=== PATIENT | male | born 1955 | race Caucasian/White ===

== ENCOUNTER 2016-10-16 13:25 | Emergency (ER) | payer MEDICARE, OTHER ==
[~2016-10-16] VITALS: Ht 182.9 cm; Wt 90.7 kg
[2016-10-16 13:33] VITALS: BP 115/72
== END 2016-10-16 14:18 | disposition home or self-care (01) ==
LOC: ER 13:31
DX: Z89.512 Acquired absence of left leg below knee (principal); I12.0 Hypertensive chronic kidney disease with stage 5 chronic kidney disease or end stage renal disease; N18.6 End stage renal disease; E11.22 Type 2 diabetes mellitus with diabetic chronic kidney disease; I25.10 Atherosclerotic heart disease of native coronary artery without angina pectoris
CPT/HCPCS: 99281; A4606; Z7502; Z7610

== ENCOUNTER 2017-02-02 13:31 | Inpatient (IN) | payer MEDICARE, OTHER ==
[~2017-02-02] VITALS: Ht 182.9 cm; Wt 103.6 kg
--- NOTE | 2017-02-02 14:15 | NUR ---
[facility] FROM [facility]. AAO4. STATES HE WAS SENT HERE BC "THERE'S A PROBLEM WITH MY FISTULA".
[2017-02-02 15:13] LABS: BASOPHILS # (AUTO) 0.1 /CMM (0.0-0.2); BASOPHILS % (AUTO) 1.2 % (0.0-2.0); EOSINOPHILS # (AUTO) 0.3 /CMM (0.0-0.7); EOSINOPHILS % (AUTO) 7.8 % (0.0-6.0); HEMATOCRIT 37 % (39-51); HEMOGLOBIN 12.4 g/dL (13.5-17.5); LYMPHOCYTES # (AUTO) 1.2 /CMM (0.8-4.8); LYMPHOCYTES % (AUTO) 27.4 % (20.0-44.0); MEAN CORPUSCULAR HEMOGLOBIN 31 PG (26.0-33.0); MEAN CORPUSCULAR HGB CONC 34 g/dl (31.0-36.0); MEAN CORPUSCULAR VOLUME 92 fL (80-96); MONOCYTES # (AUTO) 0.4 /CMM (0.1-1.30); MONOCYTES % (AUTO) 9.1 % (2.0-12.0); NEUTROPHILS # (AUTO) 2.4 /CMM (1.8-8.9); NEUTROPHILS % (AUTO) 54.5 % (43.0-81.0); PLATELET COUNT (AUTO) 234 /CMM (150-450); RDW COEFFICIENT OF VARIATION 13.2 (11.5-15.0); RED BLOOD CELL COUNT(AUTO) 4.05 MIL/uL (4.5-6.0); WHITE BLOOD COUNT (AUTO) 4.4 K/uL (4.3-11.0)
[2017-02-02 15:26] LABS: CALCIUM, SERUM 8.1 mg/dL (8.5-10.1)
[2017-02-02 15:27] LABS: INR 0.92 (0.87-1.13); PROTHROMBIN TIME 9.6 SECS (9.5-12.7)
[2017-02-02] MEDS ORDERED: ACETAMINOPHEN ES 500 MG TABLET PO ONE (15:30)
[2017-02-02 15:31] LABS: CREATININE 7.8 mg/dL (0.6-1.3)
--- NOTE | 2017-02-02 19:43 | NUR ---
PT A/OX4 BREATHING EFFORTLESSLY ON ROOM AIR, PT STATES HE IS IN NO PAIN AT THIS TIME, PT ON MONITOR, MD SHON MADE AWARE WILL CONTINUE TO MONITOR.
[2017-02-02] MEDS ORDERED: IOHEXOL-350 100 ML VIAL IV ONE (20:10)
[2017-02-02] MEDS ORDERED: IV NS 0.9% 250 ML IV ONE (20:11)
[2017-02-02 21:45] VITALS: BP 159/71
[2017-02-02 22:00] VITALS: BP 159/71
--- NOTE | 2017-02-02 22:30 | NUR ---
MS [place] INITIAL NOTES ADMIT A PT FROM ER VIA [facility] ACCOMPANIED BY DELIVERY PROFESSIONAL. DX OF AV FISTULA MALFUNCTION. PT IS A/O X4, ABLE TO AMBULATE EVEN WITH PROSTHESIS ON HIS LEFT LOWER LEG. SKIN WARM AND DRY TO TOUCH. DENIES ANY PAIN OR ANY DISCOMFORT. ORIENTED HOW TO USED THE CALL LIGHT SYSTEM AND ENCOURAGE HIM TO USED IF HE NEEDS NURSE OR NEEDS SOME HELPED. PT STATED HE JUST WANTS SOMETHING TO EAT. SPOKE TO HIM THAT I WILL CHECKED THE ORDERS AND I WILL BRING SOMETHING. KEPT HIM WARM AND COMFORTABLE AT ALL TIMES. WILL CONTINUE TO MONITOR. HEPLOCK AT THIS TIME.
--- NOTE | 2017-02-02 23:00 | NUR ---
MEDICAL RECRUITER/NOTES AFTER I GOT ORDERED FROM DR HYDE, LIGHT DINNER SERVED AND PT STATED "THANK YOU " WILL CONTINUE MONITORING.
[2017-02-02] MEDS ORDERED: CHOL200026 PO (23:28)
[2017-02-02] MEDS ORDERED: ATOR20TA PO (23:28)
[2017-02-02] MEDS ORDERED: FOLI1TAB16 PO (23:28)
[2017-02-02] MEDS ORDERED: AMLO10TA2 PO (23:28)
[2017-02-02] MEDS ORDERED: ASPI-991 PO (23:28)
[2017-02-02] MEDS ORDERED: SEVE800T8 PO (23:28)
[2017-02-02] MEDS ORDERED: SERT25TA5 PO (23:28)
--- NOTE | 2017-02-03 01:58 | NUR ---
BELL SPINNER/NOTES PT SLEEPING COMFORTABLY AT THIS TIME WITHOUT ANY ACUTE DISTRESS NOTED. KEPT HIM WARM AND COMFORTABLE AT ALL TIMES. WILL CONTINUE TO MONITOR.PLACE CALL LIGHT AT REACH.
[2017-02-03 06:28] LABS: BASOPHILS % (AUTO) 0.7 % (0.0-2.0); EOSINOPHILS # (AUTO) 0.3 /CMM (0.0-0.7); EOSINOPHILS % (AUTO) 5.8 % (0.0-6.0); HEMATOCRIT 37 % (39-51); HEMOGLOBIN 12.6 g/dL (13.5-17.5); LYMPHOCYTES # (AUTO) 1.2 /CMM (0.8-4.8); LYMPHOCYTES % (AUTO) 21.9 % (20.0-44.0); MEAN CORPUSCULAR HEMOGLOBIN 31 PG (26.0-33.0); MEAN CORPUSCULAR HGB CONC 34 g/dl (31.0-36.0); MEAN CORPUSCULAR VOLUME 92 fL (80-96); MONOCYTES # (AUTO) 0.3 /CMM (0.1-1.30); MONOCYTES % (AUTO) 5.8 % (2.0-12.0); NEUTROPHILS # (AUTO) 3.5 /CMM (1.8-8.9); NEUTROPHILS % (AUTO) 65.8 % (43.0-81.0); PLATELET COUNT (AUTO) 217 /CMM (150-450); RDW COEFFICIENT OF VARIATION 14.1 (11.5-15.0); RED BLOOD CELL COUNT(AUTO) 4.03 MIL/uL (4.5-6.0); WHITE BLOOD COUNT (AUTO) 5.4 K/uL (4.3-11.0)
[2017-02-03 06:45] LABS: POTASSIUM 4.4 mmol/L (3.5-5.1)
[2017-02-03 06:49] LABS: CREATININE 8.2 mg/dL (0.6-1.3)
--- NOTE | 2017-02-03 06:59 | NUR ---
MS LICENSED SOCIAL WORKER CLOSING NOTES PT BACK TO REST AFTER WOKE EARLIER. DENIES ANY PAIN OR ANY DISCOMFORT. STABLE FARTUN THE NIGHT AND SLEPT WELL. ALL NEEDS MET . KEPT HIM WARM AND COMFORTABLE AT ALL TIMES. PLACE CALL AT REACH.
--- NOTE | 2017-02-03 07:30 | NUR ---
RN INITIAL NOTES PATIENT UP IN BED, AWAKE, ALERT AND ORIENTED X 4, ABLE TO VERBALIZE NEEDS, NOTED WITH NO SOB, BREATHING EVEN AND UNLABORED. NO C/O PAIN AT THIS TIME, COMFORTABLE, NO SIGNS AND SYMPTOMS OF ACUTE DISTRESS. CALL LIGHT PLACED WITHIN EASY REACH. WILL CONTINUE TO MONITOR.
[2017-02-03 08:00] VITALS: BP 134/79
[2017-02-03] MEDS ORDERED: ACETAMINOPHEN ES 500 MG TABLET PO PRN (08:30)
[2017-02-03] MEDS ORDERED: CHOLECALCIFEROL 1,000 UNIT TABLET (VIT D3) PO SCH (10:53)
[2017-02-03] MEDS ORDERED: ERGOCALCIFEROL (VITAMIN D 2) 50,000 UNIT CAPSULE PO SCH (11:30)
--- NOTE | 2017-02-03 13:30 | NUR ---
SEEN AND EXAMINED BY DR. HYDE WITH NEW ORDER FOR VASCULAR SURGEON CONSULT BY DR. LEMA. ALL ORDERS NOTED AND CARRIED OUT. PATIENT INFORMED AND AGREES.
[2017-02-03 16:00] VITALS: BP 128/75
[2017-02-03] MEDS: SEVELAMER CARBONATE 800 MG TABLET PO SCH ×2 (16:15→18:50)
--- NOTE | 2017-02-03 18:43 | NUR ---
RN CLOSING NOTES PATIENT UP IN BED, AWAKE, ALERT AND ORIENTED X 4 WITH NO C/O PAIN AT THIS TIME, NO S/S OF ACUTE DISTRESS. ALL PATIENT'S NEEDS ATTENDED TO. KEPT PT SAFE AND DRY, CLEAN AND COMFORTABLE. PLACED CALL LIGHT WITHIN EASY REACH.
--- NOTE | 2017-02-03 19:30 | NUR ---
MS [place] INITIAL NOTES RECEIVED PT IN BED AWAKE AND ALERT WATCHING TV AT THIS TIME. DENIES ANY PAIN OR ANY DISCOMFORT. DIALYSIS DONE TODAY AND 2.5 LITERS OUT PER AM NURSE. BREATHING EVEN AND NON-LABORED. KEPT HIM WARM AND COMFORTABLE AT ALL TIMES. VITAL SIGNS WITHIN NORMAL LIMIT.PLACE CALL LIGHT AT REACH. WILL CONTINUE TO MONITOR.
[2017-02-03 20:00] VITALS: BP 121/69
[2017-02-03 21:08] VITALS: BP 121/69
[2017-02-03] MEDS ORDERED: ATORVASTATIN 10 MG TABLET PO SCH (22:00)
--- NOTE | 2017-02-04 02:11 | NUR ---
ORDNANCE TECHNICIAN/NOTES PT SLEEPING AT THIS TIME WITHOUT ANY ACUTE DISTRESS NOTED. KEPT HIM WARM AND COMFORTABLE AT ALL TIMES. PLACE CALL LIGHT AT REACH. WILL CONTINUE TO MONITOR.
[2017-02-04 06:47] LABS: BASOPHILS % (AUTO) 0.6 % (0.0-2.0); EOSINOPHILS # (AUTO) 0.3 /CMM (0.0-0.7); EOSINOPHILS % (AUTO) 6.5 % (0.0-6.0); HEMATOCRIT 37 % (39-51); HEMOGLOBIN 12.5 g/dL (13.5-17.5); LYMPHOCYTES # (AUTO) 1.3 /CMM (0.8-4.8); LYMPHOCYTES % (AUTO) 24.4 % (20.0-44.0); MAGNESIUM 2.5 mg/dL (1.8-2.4); MEAN CORPUSCULAR HEMOGLOBIN 31 PG (26.0-33.0); MEAN CORPUSCULAR HGB CONC 34 g/dl (31.0-36.0); MEAN CORPUSCULAR VOLUME 92 fL (80-96); MONOCYTES # (AUTO) 0.4 /CMM (0.1-1.30); MONOCYTES % (AUTO) 8.2 % (2.0-12.0); NEUTROPHILS # (AUTO) 3.2 /CMM (1.8-8.9); NEUTROPHILS % (AUTO) 60.3 % (43.0-81.0); PHOSPHORUS 5.4 mg/dL (2.5-4.9); PLATELET COUNT (AUTO) 223 /CMM (150-450); POTASSIUM 4.2 mmol/L (3.5-5.1); RDW COEFFICIENT OF VARIATION 14.3 (11.5-15.0); RED BLOOD CELL COUNT(AUTO) 3.99 MIL/uL (4.5-6.0); WHITE BLOOD COUNT (AUTO) 5.3 K/uL (4.3-11.0)
--- NOTE | 2017-02-04 07:15 | NUR ---
RN INITIAL NOTES PATIENT UP IN BED, AWAKE, ALERT AND ORIENTED X 4, NO C/O PAIN, NO SOB NOTED, BREATHING EVEN AND UNLABORED, NO C/O NAUSEA, NO DIZZINESS. ALL PATIENT'S NEEDS ATTENDED TO, PLACED CALL LIGHT WITHIN EASY REACH. WILL CONTINUE TO MONITOR.
--- NOTE | 2017-02-04 07:35 | NUR ---
MS WRINGER AND SETTER CLOSING NOTES PT AWAKE AND WATCHING TV AT THIS TIME, SLEPT WELL AND STABLE FARTUN THE NIGHT. DENIES ANY PAIN OR ANY DISCOMFORT. KEPT HIM WARM AND COMFORTABLE AT ALL TIMES. NO ACUTE DISTRESS NOTED. ENDORSE TO AM NURSE FOR CONTINUITY OF CARE. PLACE CALL LIGHT AT REACH.
[2017-02-04 08:00] VITALS: BP 124/74
[2017-02-04] MEDS: SEVELAMER CARBONATE 800 MG TABLET PO SCH ×2 (08:53→13:02)
[2017-02-04 09:00] VITALS: BP 124/74
[2017-02-04] MEDS ORDERED: AMLODIPINE BESYLATE 10 MG TABLET PO SCH (09:00)
[2017-02-04] MEDS ORDERED: SERTRALINE HCL 25 MG TABLET PO SCH ×2 (09:00→22:00)
[2017-02-04] MEDS ORDERED: ASPIRIN EC 81 MG TABLET.DR PO SCH (09:00)
[2017-02-04] MEDS ORDERED: FOLIC ACID 1 MG TABLET PO SCH (09:00)
--- NOTE | 2017-02-04 09:00 | NUR ---
BP MEDICATION PATIENT'S BP MEDICATION HELD. ANTICIPATING HEMODIALYSIS TO BE DONE TODAY.
--- NOTE | 2017-02-04 15:14 | NUR ---
COMMERCIAL CENSUS TAKER NOTES PATIENT UP IN BED, COMFORTABLE, ALERT AND ORIENTED X 4, NO SOB, BREATHING EVEN AND UNLABORED, WITH NO C/O PAIN, NO SIGNS AND SYMPTOMS OF DISTRESS. DISCHARGE INSTRUCTIONS AND TEACHING GIVEN, VERBALIZED UNDERSTANDING AND AGREES WITH INSTRUCTIONS AND TEACHINGS, INVENTORY DONE AND ALL BELONGINGS COMPLETE. PATIENT READY TO DISCHARGE AND AWAITING FOR KNIT GOODS MENDER.
--- NOTE | 2017-02-04 17:25 | NUR ---
PT DISCHARGE PATIENT UP ON CHAIR, NO SOB, BREATHING EVEN AND UNLABORED, NO C/O PAIN, CALM, NO S/S OF ACUTE DISTRESS. PICKED UP BY PERSONNEL OF [employer] [facility] [employer], LEFT FACILITY SAFELY VIA GURNEY IN STABLE CONDITION, ALL BELONGINGS COMPLETE AND DISCHARGE PACKET WITH PATIENT.
[2017-02-27] MEDS ORDERED: ERGOCALCIFEROL (VITAMIN D 2) 50,000 UNIT CAPSULE PO SCH (11:30)
== END 2017-02-04 17:30 | disposition home or self-care (01) | DRG 947 ==
LOC: ER 13:35 → MED 20:33
PROVIDERS: ADMIT Internal Medicine; ATTEND Internal Medicine
PROC: 5A1D70Z Performance of Urinary Filtration, Intermittent, Less than 6 Hours Per Day (ICD-10-PCS; principal; 2017-02-03)
DX: G89.18 Other acute postprocedural pain (principal); N18.6 End stage renal disease; E11.22 Type 2 diabetes mellitus with diabetic chronic kidney disease; E11.51 Type 2 diabetes mellitus with diabetic peripheral angiopathy without gangrene; I12.0 Hypertensive chronic kidney disease with stage 5 chronic kidney disease or end stage renal disease; Z79.899 Other long term (current) drug therapy; Z99.2 Dependence on renal dialysis; I25.10 Atherosclerotic heart disease of native coronary artery without angina pectoris; E55.9 Vitamin D deficiency, unspecified; D64.9 Anemia, unspecified; Z79.82 Long term (current) use of aspirin; Z83.3 Family history of diabetes mellitus; Z87.891 Personal history of nicotine dependence; Z89.512 Acquired absence of left leg below knee; Z89.412 Acquired absence of left great toe
CPT/HCPCS: 36415; 80048-TC; 83605-TC; 83735-TC; 84100-TC; 85025-TC; 85730-TC; 87081-TC; 90935-TC; 93930-TC; 93971-TC; A4606; J7050; Q9967; Z7610

== ENCOUNTER 2017-08-30 11:15 | Inpatient (IN) | payer MEDICARE, OTHER ==
[~2017-08-30] VITALS: Ht 185.4 cm; Wt 54.4 kg
[~2017-08-30 11:15] MED LIST: AMLO10TA2 PO; ASPI-1152 PO; ATOR20TA PO; CHOL200026 PO; FOLI1TAB16 PO; SERT25TA5 PO; SEVE800T8 PO
--- NOTE | 2017-08-30 11:20 | NUR ---
Recieved patient to ed bed 12, pt was brought in by private ems from [facility] for SOB, worsening cough for the last 2 days. Pt was noted with an oral temp of 100.8. Hypoxia, spo2 at room air at 82%, o2 via nasal cannula provided. Pt denies chest pain. A/Ox4. Gowned and placed on cont cardiac and pox monitoring. All needs are attended, kept comfortable. pending ER DMD evaluatioon
--- NOTE | 2017-08-30 11:23 | NUR ---
Dr. brooke at bedside for evaluation.
[2017-08-30] MEDS ORDERED: ACETAMINOPHEN ES 500 MG TABLET PO ONE (11:30)
[2017-08-30] MEDS ORDERED: IV NS 0.9% 1,000 ML BAG IV ONE (11:30)
[2017-08-30] MEDS ORDERED: VANCOMYCIN 1 GM in IV D5W 250 ML IV ONE (11:30)
[2017-08-30] MEDS ORDERED: MEROPENEM 1 G in IV NS 0.9% 100 ML IV ONE (11:30)
[2017-08-30] MEDS ORDERED: CHOL500052 PO (11:39)
[2017-08-30] MEDS ORDERED: ACETAMINOPHEN ES 500 MG TABLET ONE (11:43)
[2017-08-30 11:47] LABS: BASOPHILS # (AUTO) 0.1 /CMM (0.0-0.2); BASOPHILS % (AUTO) 1.7 % (0.0-2.0); EOSINOPHILS % (AUTO) 0.9 % (0.0-6.0); HEMATOCRIT 40 % (39-51); HEMOGLOBIN 13.8 g/dL (13.5-17.5); LYMPHOCYTES # (AUTO) 0.4 /CMM (0.8-4.8); LYMPHOCYTES % (AUTO) 4.8 % (20.0-44.0); MEAN CORPUSCULAR HEMOGLOBIN 34 PG (26.0-33.0); MEAN CORPUSCULAR HGB CONC 35 g/dl (31.0-36.0); MEAN CORPUSCULAR VOLUME 97 fL (80-96); MONOCYTES # (AUTO) 0.3 /CMM (0.1-1.30); MONOCYTES % (AUTO) 3.4 % (2.0-12.0); NEUTROPHILS # (AUTO) 6.8 /CMM (1.8-8.9); NEUTROPHILS % (AUTO) 89.2 % (43.0-81.0); PLATELET COUNT (AUTO) 218 /CMM (150-450); RDW COEFFICIENT OF VARIATION 13.9 (11.5-15.0); RED BLOOD CELL COUNT(AUTO) 4.06 MIL/uL (4.5-6.0); WHITE BLOOD COUNT (AUTO) 7.7 K/uL (4.3-11.0)
--- NOTE | 2017-08-30 11:49 | NUR ---
Medicated with tylenol, IV fluid infusing as ordered.
[2017-08-30 11:57] LABS: CALCIUM, SERUM 8.9 mg/dL (8.5-10.1); POTASSIUM 3.2 mmol/L (3.5-5.1)
[2017-08-30 12:01] LABS: INR 1.05 (0.85-1.15)
[2017-08-30 12:05] LABS: TROPONIN I 1.886 ng/mL (0.00-0.056)
[2017-08-30 12:09] LABS: ALBUMIN 3.2 g/dL (3.4-5.0); BILIRUBIN,DIRECT 0.2 mg/dL (0.0-0.2); BILIRUBIN,TOTAL 0.6 mg/dL (0.2-1.0); TOTAL PROTEIN, SERUM 7.5 g/dL (6.4-8.2)
[2017-08-30] MEDS ORDERED: ASPIRIN 325 MG TABLET PO ONE (12:30)
--- NOTE | 2017-08-30 12:32 | NUR ---
CALLED NURSING SUP. FOR TIM BED
[2017-08-30] MEDS ORDERED: ASPIRIN 325 MG TABLET ONE (13:05)
--- NOTE | 2017-08-30 14:00 | NUR ---
RN NOTE RECEIVED REPORT FROM NANDA MCNEIL IN ER. RECEIVED 61 YEAR OLD MALE PATIENT FROM [facility] FOR SOB, COUGH, AND FEVER. PATIENT IS ALERT AND ORIENTED X3, HE IS ABLE TO MAKE THINGS KNOWN AND VERBALIZE NEEDS. BREATHING EVEN AND UNLABORED WITH NO DISTRESS NOTED. ON CONTINUOUS O2 5L VIA MASK SATURATING WELL. ON GLOBAL RISK MANAGEMENT DIRECTOR SINUS RHYTHM HR OF 96. PATIENT NOTED WITH LEFT BKA WITH PROSTHETIC AT BEDSIDE. WOUND PICTURES TAKEN AND DOCUMENTED ON CHART. RIGHT AC IV SITE 20 GAUGE INTACT AND PATENT. ALL SAFETY MEASURES DONE. BED LOCKED AND LOW POSITION. WILL CONTINUE TO MONITOR CLOSELY.
--- NOTE | 2017-08-30 14:00 | NUR ---
transferred to floor via acls protocol.
[2017-08-30 14:40] VITALS: BP 141/78
[2017-08-30 16:00] VITALS: BP 141/78
[2017-08-30] MEDS: ALBUTEROL FS 2.5 MG/3 ML VIAL.NEB NEB SCH ×2 (16:15→18:59)
[2017-08-30] MEDS ORDERED: POTASSIUM CHLORIDE 20 MEQ TAB.PRT.SR PO ONE (16:30)
[2017-08-30] MEDS: CEFTRIAXONE 1 G in IV D5W 50 ML IV SCH (17:17)
[2017-08-30] MEDS: AZITHROMYCIN 500 MG in IV D5W 250 ML IV SCH (17:58)
[2017-08-30] MEDS: SEVELAMER CARBONATE 800 MG TABLET PO SCH (18:01)
--- NOTE | 2017-08-30 18:50 | NUR ---
RN NOTE PATIENT WAS DIALYZED TODAY, OUTPUT OF 2L. PATIENT REMAINED STABLE THROUGHOUT SHIFT. NO ACUTE CHANGES OR DISTRESS NOTED. WILL ENDORSE TO NEXT SHIFT TO CONTINUE TO MONITOR CONTINUITY OF CARE.
[2017-08-30 20:00] VITALS: BP_SYST 125; BP_SYST 157; BP_DIAS 67; BP_DIAS 86; BP_DIAS 89
--- NOTE | 2017-08-30 20:00 | NUR ---
TIM RN OPENING NOTES RECEIVED REPORT FROM DOUG MCNEIL. PATIENT A/A/O X3, ABLE TO MAKE NEEDS KNOWN. SOME SOB NOTED W/ O2 @ 4LPM VIA NC. CHANGED TO SIMPLE MASK ON O2 10LPM W/ SATURATION @ 91%. ON TELE W/ SINUS TACH, HR 110S. DENIES ANY CARDIAC DISTRESS. RIGHT AC IV #20 INTACT & PATENT W/ DRESSING CDI, SALINE LOCKED. PATIENT ABLE TO AMBULATE W/ PROSTHETIC ON LEFT LOWER LEG & W/ ASSISTANCE. SAFETY MEASURES IN PLACE W/ CALL LIGHT WITHIN REACH AND INSTRUCTED TO CALL FOR ASSISTANCE. WILL CONTINUE TO MONITOR CLOSELY.
--- NOTE | 2017-08-30 20:30 | NUR ---
TIM RN NOTES RECEIVED CRITICAL TROPONIN RESULT = 6.029. SPOKE TO DR. HYDE'S MORALE OFFICER, JEAN CASTILLO, W/ NO NEW ORDERS. WILL CONTINUE TO MONITOR PATIENT FOR OTHER S/S.
[2017-08-30 20:46] LABS: ABG BASE EXCESS 6.4 mmol/L; ABG PCO2 42.9 mmHg (35.0-45.0); ABG PH 7.472 (7.350-7.450); ABG PO2 58.9 mmHg (75.0-100.0); COHb 0.1 % (0.5-1.5); MetHb 0.8 % (0.0-1.5); O2Hb 90.2 % (94.0-97.0); SITE, ABG Right Radial; VENT MODE, BG SIMPLE MASK
--- NOTE | 2017-08-30 21:00 | NUR ---
TIM RN NOTES RECEIVED ABG RESULTS & REPORTED TO JEAN CASTILLO NP. RECEIVED NEW ORDERS FOR EKG & TO CALL METAL MINER BLASTING. NEW ORDERS NOTED & CARRIED OUT.
--- NOTE | 2017-08-30 21:30 | NUR ---
TIM RN NOTES REPORTED ABG RESULTS TO PULMONOLOGY ON-CALL, DR DOWELL & RECEIVED NEW ORDERS FOR HIFLOW O2 OR VENTURI MASK, CXR & REPEAT ABG IN AM. NEW ORDERS NOTED & CARRIED OUT.
[2017-08-30] MEDS: ATORVASTATIN 10 MG TABLET PO SCH (21:56)
--- NOTE | 2017-08-30 23:00 | NUR ---
TIM RN NOTES REPORTED TROPONIN RESULTS, EKG & PATIENT'S CURRENT CONDITION TO ON-CALL CARDIO, DR ROBLES & RECEIVED NEW ORDERS FOR HEPARIN DRIP PER [facility] PROTOCOL & ADDITIONAL BP MED. PATIENT IS ASYMPTOMATIC & NOT COMPLAINING OF ANY CHEST PAIN @ THIS TIME. WILL START HEPARIN PER [facility] PROTOCOL & CONTINUE TO MONITOR PATIENT CLOSELY. BP 150/83, HR 106
[2017-08-30] MEDS ORDERED: METOPROLOL TARTRATE 25 MG TABLET PO SCH (23:30)
[2017-08-30] MEDS ORDERED: HEPARIN INFUSION/D5W 500 ML IV ONE (23:41)
[2017-08-30] MEDS ORDERED: HEPARIN SODIUM, PORCINE 5000 UNITS/1 ML VIAL IV PRN (23:45)
[2017-08-30] MEDS ORDERED: HEPARIN SODIUM, PORCINE 1,000 UNIT/ML VIAL IV PRN (23:45)
[2017-08-31] VITALS: BP 149/85
--- NOTE | 2017-08-31 | NUR ---
TIM RN NOTES HEPARIN DRIP STARTED PER [facility] PROTOCOL. VERIFIED W/ TARUN FAY. APTT LAB DRAW ORDERED FOR 0600.
[2017-08-31] MEDS: HEPARIN INFUSION/D5W 500 ML IV SCH (00:09)
[2017-08-31] MEDS: ALBUTEROL FS 2.5 MG/3 ML VIAL.NEB NEB SCH ×4 (01:31→20:25)
--- NOTE | 2017-08-31 02:00 | NUR ---
PLACED PT ON NOCTURNAL BIPAP 23/10,RATE 20,50% PER MD'S ORDERED. TARUN MCDOWELL NOTIFIED
--- NOTE | 2017-08-31 02:00 | NUR ---
TIM RN NOTES PATIENT STARTED DESATING TO BELOW 90% W/ DIFFICULTY BREATHING ON HIFLOW O2. SPOKE TO DR LAI & RECEIVED NEW ORDER TO START ON BIPAP.
--- NOTE | 2017-08-31 02:30 | NUR ---
TIM RN NOTES PATIENT PLACED ON BIPAP W/ SETTINGS 23/10, RATE 20. SATING @ 92-96% & PATIENT TOLERATING WELL & MORE COMFORTABLE. WILL CONTINUE TO MONITOR CLOSELY.
[2017-08-31 04:00] VITALS: BP 145/76
[2017-08-31 04:06] LABS: BASOPHILS % (AUTO) 0.5 % (0.0-2.0); EOSINOPHILS % (AUTO) 0.4 % (0.0-6.0); HEMATOCRIT 34 % (39-51); HEMOGLOBIN 11.7 g/dL (13.5-17.5); LYMPHOCYTES # (AUTO) 0.4 /CMM (0.8-4.8); LYMPHOCYTES % (AUTO) 5.4 % (20.0-44.0); MEAN CORPUSCULAR HEMOGLOBIN 35 PG (26.0-33.0); MEAN CORPUSCULAR HGB CONC 35 g/dl (31.0-36.0); MEAN CORPUSCULAR VOLUME 100 fL (80-96); MONOCYTES # (AUTO) 0.3 /CMM (0.1-1.30); MONOCYTES % (AUTO) 4.4 % (2.0-12.0); NEUTROPHILS # (AUTO) 6.3 /CMM (1.8-8.9); NEUTROPHILS % (AUTO) 89.3 % (43.0-81.0); PLATELET COUNT (AUTO) 195 /CMM (150-450); RDW COEFFICIENT OF VARIATION 14.5 (11.5-15.0); RED BLOOD CELL COUNT(AUTO) 3.38 MIL/uL (4.5-6.0)
[2017-08-31 04:18] LABS: CALCIUM, SERUM 7.8 mg/dL (8.5-10.1); CREATININE 5.6 mg/dL (0.6-1.3); POTASSIUM 4.1 mmol/L (3.5-5.1)
--- NOTE | 2017-08-31 04:48 | NUR ---
TIM RN NOTES PATIENT REQUESTED TO TAKE OFF BIPAP BECAUSE HE WAS COMPLAINING OF STARTING TO GET TOO MUCH AIR. PLACED BACK ON SIMPLE MASK @ 10LPM. O2 SAT 92-95%.
--- NOTE | 2017-08-31 07:15 | NUR ---
RN INITIAL NOTES: REC'D PT ON BED COMMODE, NOT IN ANY DISTRESS, A/O X 3-4, NO C/O PAIN/DISTRESS. ON NC/5LPM, SATING AT 95%. ON TELEMONITOR, SR 96 BPM. HAS R AC G20, PL, PATENT & INTACT W/ NO S/SX OF INFECTION/INFILTRATION NOTED, ON HEPARIN DRIP X 708 U/KG. HAS L ARM AVF, +BRUIT/THRILL. NOTED L BKA W/ PROSTHESIS AT BEDSIDE. PT SCHED FOR HD. PROVIDED COMFORT & SAFETY MEASURES. BED KEPT LOW & IN LOCKED POS. CALL LIGHT PLACED W/IN REACH. WILL CONTINUE TO MONITOR & ATTEND PT NEEDS. Addendum: 09/01/17 at 0933 by RADHA HALE RN ADDENDUM: L ABOVE ANKLE AMPUTATION
[2017-08-31 08:00] VITALS: BP 144/81
[2017-08-31] MEDS ORDERED: HEPARIN SODIUM, PORCINE 5000 UNITS/1 ML VIAL IV ONE (08:09)
[2017-08-31] MEDS: FOLIC ACID 1 MG TABLET PO SCH (08:24)
[2017-08-31] MEDS: SEVELAMER CARBONATE 800 MG TABLET PO SCH ×3 (08:24→17:20)
[2017-08-31] MEDS: SERTRALINE HCL 25 MG TABLET PO SCH (08:24)
[2017-08-31] MEDS: ASPIRIN EC 81 MG TABLET.DR PO SCH (08:24)
[2017-08-31 08:27] LABS: ABG BASE EXCESS 4.6 mmol/L; ABG OXYGEN SATURATION 88.1 % (92.0-98.5); ABG PCO2 40.5 mmHg (35.0-45.0); ABG PH 7.468 (7.350-7.450); ABG PO2 53.5 mmHg (75.0-100.0); AaDO2 185.1 mmHg; MetHb 0.7 % (0.0-1.5); O2Hb 87.5 % (94.0-97.0); SITE, ABG Right Radial; VENT MODE, BG NASAL CANNULA 40%
--- NOTE | 2017-08-31 08:45 | NUR ---
RN NOTES: PT SEEN & EXAMINED BY DR. BARR & DR. ROBLES. PER DR. ROBLES, PT IS SCHED FOR CARDIAC CATH TOMORROW 09/01 AT [facility] P/U AT 10AM (PROCEDURE SCHED AT 1330h). CN NOTIFIED. PER , NPO [place], SECURE CONSENT & MAY STOP HEPARIN DRIP PRIOR TO TRANSFER. DR. ROBLES UPDATED RE: CURRENT HEPARIN DRIP. PER JUST CONTINUE & FOLLOW PROTOCOL.
[2017-08-31] MEDS: AMLODIPINE BESYLATE 10 MG TABLET PO SCH (09:00)
[2017-08-31] MEDS: METOPROLOL TARTRATE 25 MG TABLET PO SCH ×2 (09:00→21:23)
--- NOTE | 2017-08-31 09:30 | NUR ---
RN NOTES: PT SEEN & EXAMINED BY DR. HYDE. MD WAS ABLE TO TALK TO DR. VALDES & MADE HIM AWARE OF PLANNED PROCEDURE RAMSEY. NO NEW ORDERS MADE.
--- NOTE | 2017-08-31 10:07 | NUR ---
RN NOTES: CONSENT FOR CARDIAC CATHETERIZATION SECURED, SIGNED BY PT & PLACED IN CHART. NO QUESTIONS ASKED AT THIS TIME.
--- NOTE | 2017-08-31 11:04 | NUR ---
RN NOTES: PER RD RECOMMENDATION: CHANGE CURRENT DIET TO RENAL HIGH.
--- NOTE | 2017-08-31 11:22 | NUR ---
RN NOTES: MARIE ENDED, 3L OUTPUT. PT TOLERATED WELL. Addendum: 08/31/17 at 1350 by RADHA HALE RN ADDENDUM: MARIE HERNANDEZ MADE AWARE THAT PER CHYNA GUSTAFSON (PER DR. ROBLES), PT NEEDS TO BE DIALYZE PRIOR TO TRANSFER TO [facility] (TRANSFER TIME 10AM). MARIE MCNEIL SAID THAT HE WILL NOTIFY DR. BARR.
[2017-08-31 12:00] VITALS: BP 138/82
[2017-08-31 15:19] LABS: INR 1.1 (0.87-1.13)
[2017-08-31 16:00] VITALS: BP 130/70
[2017-08-31] MEDS: CEFTRIAXONE 1 G in IV D5W 50 ML IV SCH (16:51)
[2017-08-31] MEDS: AZITHROMYCIN 500 MG in IV D5W 250 ML IV SCH (17:19)
[2017-08-31] MEDS: LACTOBACILLUS RHAMNOSUS GG 1 EACH CAP.SPRINK PO SCH (17:19)
--- NOTE | 2017-08-31 19:50 | NUR ---
TIM RN OPENING NOTES RECEIVED REPORT FROM RADHA Sosa RN. PATIENT A/A/O X3, ABLE TO MAKE NEEDS KNOWN. BREATHING EVEN & UNLABORED, TOLERATING O2 @ 3LPM VIA NC. DENIED ANY SOB OR DIFFICULTY BREATHING. ON TELE W/ SINUS RHYTHM, HR 92. DENIED CHEST PAIN OR DISCOMFORT. RIGHT AC IV #20 & RIGHT HAND IV #22 INTACT & PATENT W/ DRESSING CDI. HEPARIN DRIP INFUSING WELL @ 1008 UNITS/HR. NO SIGNS OF BLEEDING NOTED. PATIENT ABLE TO AMBULATE W/ PROSTHETIC ON LEFT LOWER LEG & W/ ASSISTANCE. SAFETY MEASURES IN PLACE W/ CALL LIGHT WITHIN REACH AND INSTRUCTED TO CALL FOR ASSISTANCE. WILL CONTINUE TO MONITOR CLOSELY.
[2017-08-31 20:00] VITALS: BP 125/67
--- NOTE | 2017-08-31 20:45 | NUR ---
TIM RN NOTES APPT = 41. INCREASED RATE TO 1108 UNITS/HR PER PROTOCOL. VERIFIED W/ 2ND RN VIRI. NO SIGNS OF BLEEDING NOTED.
[2017-08-31 20:52] LABS: INR 1.1 (0.87-1.13)
[2017-08-31] MEDS: ATORVASTATIN 10 MG TABLET PO SCH (21:22)
[2017-09-01] VITALS: BP 131/70
[2017-09-01] MEDS: ALBUTEROL FS 2.5 MG/3 ML VIAL.NEB NEB SCH ×4 (01:30→19:30)
--- NOTE | 2017-09-01 03:00 | NUR ---
TIM RN NOTES PTT RESULT = 42. INCREASED RATE TO 1208 UNITS/HR PER PROTOCOL. VERIFIED W/ 2ND RN VIRI.
[2017-09-01 04:00] VITALS: BP 139/80
[2017-09-01] MEDS: HEPARIN INFUSION/D5W 500 ML IV SCH (04:47)
[2017-09-01 06:42] LABS: BASOPHILS % (AUTO) 0.1 % (0.0-2.0); EOSINOPHILS % (AUTO) 6.5 % (0.0-6.0); HEMATOCRIT 32 % (39-51); HEMOGLOBIN 10.9 g/dL (13.5-17.5); LYMPHOCYTES # (AUTO) 0.8 /CMM (0.8-4.8); LYMPHOCYTES % (AUTO) 17.5 % (20.0-44.0); MEAN CORPUSCULAR HEMOGLOBIN 35 PG (26.0-33.0); MEAN CORPUSCULAR HGB CONC 34 g/dl (31.0-36.0); MEAN CORPUSCULAR VOLUME 101 fL (80-96); MONOCYTES # (AUTO) 0.4 /CMM (0.1-1.30); MONOCYTES % (AUTO) 7.9 % (2.0-12.0); NEUTROPHILS # (AUTO) 3.3 /CMM (1.8-8.9); PLATELET COUNT (AUTO) 183 /CMM (150-450); RDW COEFFICIENT OF VARIATION 15.1 (11.5-15.0); RED BLOOD CELL COUNT(AUTO) 3.12 MIL/uL (4.5-6.0); RETICULOCYTE COUNT 2.3 % (0.6-2.5); WHITE BLOOD COUNT (AUTO) 4.9 K/uL (4.3-11.0)
[2017-09-01 06:43] LABS: CALCIUM, SERUM 8.1 mg/dL (8.5-10.1); CREATININE 5.3 mg/dL (0.6-1.3); PHOSPHORUS 3.2 mg/dL (2.5-4.9); POTASSIUM 3.6 mmol/L (3.5-5.1)
[2017-09-01 06:49] LABS: THYROID STIMULATING HORMONE 2.183 uIU/mL (0.358-3.74)
--- NOTE | 2017-09-01 07:10 | NUR ---
RN INITIAL NOTES: REC'D PT ON BED, NOT IN ANY DISTRESS, A/O X 3-4, NO C/O PAIN/DISTRESS. ON NC/3LPM, SATING AT 100%. ON TELEMONITOR, SR 80 BPM. HAS R AC G20, PL, PATENT & INTACT W/ NO S/SX OF INFECTION/INFILTRATION NOTED, ON HEPARIN DRIP X 1208 U/HR. HAS R HAND G22, SL. HAS L ARM AVF, +BRUIT/THRILL. NOTED L ABOVE ANKLE AMPUTATION W/ PROSTHESIS AT BEDSIDE. HD ONGOING. PT KEPT NPO AT THIS TIME D/T SCHEDULED CARDIAC CATH AT [facility], P/U 1030h. PROVIDED COMFORT & SAFETY MEASURES. BED KEPT LOW & IN LOCKED POS. CALL LIGHT PLACED W/IN REACH. WILL CONTINUE TO MONITOR & ATTEND PT NEEDS.
[2017-09-01 08:00] VITALS: BP 131/71
[2017-09-01] MEDS: SEVELAMER CARBONATE 800 MG TABLET PO SCH ×3 (08:00→16:54)
--- NOTE | 2017-09-01 08:00 | NUR ---
TARUN NOTES: GRAZYNA [phone], SPOKE W/ JULY RN & GAVE REPORT. Addendum: 09/01/17 at 0934 by RADHA HALE RN ADDENDUM: HD ENDED, 3L OUTPUT. PT TOLERATED WELL.
[2017-09-01] MEDS: ASPIRIN EC 81 MG TABLET.DR PO SCH (08:40)
[2017-09-01] MEDS: METOPROLOL TARTRATE 25 MG TABLET PO SCH (08:41)
[2017-09-01] MEDS: SERTRALINE HCL 25 MG TABLET PO SCH (08:41)
[2017-09-01] MEDS: LACTOBACILLUS RHAMNOSUS GG 1 EACH CAP.SPRINK PO SCH ×2 (08:41→16:54)
[2017-09-01] MEDS: AMLODIPINE BESYLATE 10 MG TABLET PO SCH (08:41)
[2017-09-01] MEDS: FOLIC ACID 1 MG TABLET PO SCH (08:41)
--- NOTE | 2017-09-01 09:37 | NUR ---
RN NOTES: PT SEEN & EXAMINED BY DR. ROBLES & UPDATED. PER MD MAY STOP HEPARIN DRIP PRIOR TRANSFER.
[2017-09-01] MEDS: CARVEDILOL 6.25 MG TABLET PO SCH ×2 (10:00→21:07)
--- NOTE | 2017-09-01 10:53 | NUR ---
SENIOR MATERIALS SCIENTIST NOTES: PT PICKUP BY AMBULANCE VIA GURNEY ACCOMPANIED BY LEADLIGHTER, FOR SCHEDULED CARDIAC CATHETERIZATION. PT REMAINS A/O X4, NOT IN ANY DISTRESS. REFUSED TO USE NC, VERBALIZED THAT HE IS DOING OKAY & NOT SOB. IV LINE ACCESS ON R AC G20 & R HAND 22, SL, BOTH FLUSHING WELL W/ NO S/SX OF INFECTION/INFILTRATION NOTED. ALL BELONGINGS SENT W/ PT, BELONGING LIST DONE C/O NUTRITION CONSULTANT. TRANSFER DOCUMENTS PROVIDED TO THE LEADLIGHTER. NO CONCERN IDENTIFIED DURING TRANSFER. PT LEFT THE UNIT IN GUARDED CONDITION.
--- NOTE | 2017-09-01 12:47 | NUR ---
RT HHN TX NOT GIVEN, PT OUT OF HOSPITAL FOR PROCEDURE.
--- NOTE | 2017-09-01 16:00 | NUR ---
RN NOTES: REC'D CALL FROM TARUN BOWDEN ([phone]) FROM [facility] TO GIVE REPORT. PT S/P LEFT CARDIAC CATH. 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 PT HAS TR BAND ON R RADIAL. RN SAID THAT SHE WILL CALL BACK RE: PAVING PLANT OPERATOR TIME WELL UPDATE ON PT STATUS. CLARIFIED W/ DR. ROBLES IF MEDS TO BE CONTINUED HERE IN TIM ONCE PT IS BACK. ORDERED TO DC HEPARIN DRIP.
[2017-09-01] MEDS: CEFTRIAXONE 1 G in IV D5W 50 ML IV SCH (16:30)
[2017-09-01] MEDS: AZITHROMYCIN 500 MG in IV D5W 250 ML IV SCH (16:54)
--- NOTE | 2017-09-01 19:02 | NUR ---
RN NOTES: REC'D CALL FROM DENNISE RE: UPDATE. PT IS STABLE IN THEIR UNIT AT THIS TIME, NO BLEEDING ON THE TR BAND. TRACK SERVICE PERSON TIME 8PM. WILL ENDORSE TO PM RN FOR CEDRIC.
[2017-09-01 20:00] VITALS: BP 141/73
--- NOTE | 2017-09-01 20:40 | NUR ---
RN TIM NOTE PATIENT RETURNED FROM [facility] S/P CARDIAC CATH, PRESENTS AOX3, SPEECH CLEAR, ABLE TO MAKE NEEDS KNOWN, NO S/SX OF RESPIRATORY OR CARDIAC DISTRESS, ON ROOM AIR, DENIES HAVING ANY PAIN, RAC#20 SL PATENT FLUSHING WELL, R HAND #22 SL PATENT FLUSHING WELL, SITES CDI,, LEFT ABOVE ANKLE AMPUTATION, SKIN KEPT CLEAN AND DRY. CALL LIGHT WITHIN REACH SAFETY MAINTAINED AT ALL TIMES, BED IN LOW LOCKED POSITION, WILL CONTINUE TO MONITOR FOR ANY CHANGES IN CONDITION.
[2017-09-01] MEDS: ATORVASTATIN 10 MG TABLET PO SCH (21:06)
--- NOTE | 2017-09-01 21:14 | NUR ---
PATIENT RETURNED, ALERT AND STABLE. PATIENT WILL BE PLACED ON BIPAP AT 2300 PER DISCUSSION. Addendum: 09/01/17 at 2116 by SOY GARCIA RT Amended: Links added.
--- NOTE | 2017-09-01 23:42 | NUR ---
PATIENT PLACED ON BIPAP BUT ONLY TOLERATED AFTER 30 MINS; PLACED ON 3LNC. Addendum: 09/01/17 at 2343 by SOY GARCIA RT Amended: Links added.
[2017-09-02] VITALS (7 sets, daily range): BP systolic 127–140; BP diastolic 70–80
[2017-09-02] MEDS: ALBUTEROL FS 2.5 MG/3 ML VIAL.NEB NEB SCH ×4 (01:30→19:42)
[2017-09-02 07:10] LABS: *SPE A/G RATIO 0.9 (0.7-1.7); *SPE ALBUMIN 2.4 g/dL (2.9-4.4); *SPE ALPHA-1-GLOBULIN 0.4 g/dL (0.0-0.4); *SPE ALPHA-2-GLOBULIN 0.7 g/dL (0.4-1.0); *SPE BETA GLOBULIN 0.7 g/dL (0.7-1.3); *SPE GLOBULIN, TOTAL 2.6 g/dL (2.2-3.9); *SPE M-SPIKE Not Observed g/dL (Not Observed); *SPEGAMMA GLOBULIN 0.8 g/dL (0.4-1.8)
--- NOTE | 2017-09-02 07:30 | NUR ---
TIM RN NOTES: RECEIVED PT ON BED AWAKE, ALERT AND ORIENTED X3. ABLE TO MAKE NEEDS KNOWN. NO ACUTE DISTRESS NOTED. NO COMPLAINTS OF PAIN OR DISCOMFORT. NO SOB. IV ON RIGHT AC G20 AND RIGHT HAND G22 INTACT AND PATENT. ON TELE MONITOR, SINUS RHYTHM HR 83. KEPT CLEAN, DRY AND COMFORTABLE. SAFETY AND FALL PRECAUTIONS OBSERVED AND MAINTAINED. CALL LIGHT WITHIN REACH. WILL CONTINUE TO MONITOR.
[2017-09-02] MEDS: FOLIC ACID 1 MG TABLET PO SCH (08:15)
[2017-09-02] MEDS: LACTOBACILLUS RHAMNOSUS GG 1 EACH CAP.SPRINK PO SCH ×2 (08:15→16:39)
[2017-09-02] MEDS: SEVELAMER CARBONATE 800 MG TABLET PO SCH ×3 (08:15→17:36)
[2017-09-02] MEDS: ASPIRIN EC 81 MG TABLET.DR PO SCH (08:15)
[2017-09-02] MEDS: SERTRALINE HCL 25 MG TABLET PO SCH (08:15)
[2017-09-02] MEDS: AMLODIPINE BESYLATE 10 MG TABLET PO SCH (08:16)
[2017-09-02] MEDS: CARVEDILOL 6.25 MG TABLET PO SCH ×2 (08:17→21:08)
--- NOTE | 2017-09-02 10:00 | NUR ---
TIM RN NOTES: NOTIFIED DR. FARAH REGARDING PATIENT'S TROPONIN RESULT OF 6.183 AND HAD CARDIAC CATH AT [facility], NEW ORDER FOR PLAVIX 75MG, STATED POSSIBLE DISCHARGE.
[2017-09-02] MEDS: CLOPIDOGREL BISULFATE 75 MG TABLET PO SCH (10:24)
--- NOTE | 2017-09-02 13:18 | NUR ---
TIM RN NOTES: DR. HYDE AT BEDSIDE, STATED THAT PT FOR POSSIBLE DISCHARGE TOMORROW. NO NEW ORDERS AT THIS TIME.
[2017-09-02] MEDS: CEFTRIAXONE 1 G in IV D5W 50 ML IV SCH (15:43)
--- NOTE | 2017-09-02 16:19 | NUR ---
TIM RN NOTES: PT AWAKE, VERBALLY RESPONSIVE. NO APPARENT DISTRESS NOTED. NO COMPLAINTS OF PAIN OR DISCOMFORT. IV ATB GIVEN ORDERED. CALL LIGHT PLACED WITHIN REACH. KEPT CLEAN, DRY AND COMFORTABLE. WILL CONTINUE TO MONITOR.
[2017-09-02] MEDS: AZITHROMYCIN 250 MG TABLET PO SCH (16:39)
--- NOTE | 2017-09-02 18:22 | NUR ---
TIM RN NOTES: PT LYING ON BED, AWAKE ALERT AND ORIENTED X3. ABLE TO MAKE NEEDS KNOWN. NO APPARENT DISTRESS. NO COMPLAINTS OF PAIN OR DISCOMFORT THROUGHOUT THE SHIFT. ALL DUE MEDS GIVEN ORDERED AND WELL TOLERATED.
--- NOTE | 2017-09-02 19:20 | NUR ---
TIM RN INITIAL NOTES: RECEIVED PT AWAKE, VERBALLY RESPONSIVE. ON NC @ 2L, NO APPARENT DISTRESS NOTED. NO COMPLAINTS OF PAIN OR DISCOMFORT. PM VS OBTAINED. CALL LIGHT PLACED WITHIN REACH. KEPT CLEAN, DRY AND COMFORTABLE. WILL CONTINUE TO MONITOR.
--- NOTE | 2017-09-02 19:43 | NUR ---
PT IS AWAKE AND ALERT. PT HAS ORDERS TO BE ON BIPAP AT NIGHT. PT IS REFUSING BIPAP TONIGHT AND SAYS HE IS DOING MUCH BETTER. INFORMED PT TO CALL RT IF HE CHANGES HIS MIND.
[2017-09-02] MEDS: ATORVASTATIN 10 MG TABLET PO SCH (21:06)
[2017-09-03] VITALS: BP 127/70
[2017-09-03] MEDS: ALBUTEROL FS 2.5 MG/3 ML VIAL.NEB NEB SCH ×3 (01:30→14:10)
[2017-09-03 04:00] VITALS: BP 133/74
[2017-09-03 04:09] VITALS: BP 133/74
--- NOTE | 2017-09-03 06:48 | NUR ---
TIM RN CLOSING NOTES: ENDORSED PT AWAKE, VERBALLY RESPONSIVE. ON NC @ 2L, NO APPARENT DISTRESS NOTED. NO COMPLAINTS OF PAIN OR DISCOMFORT. PM VS OBTAINED. CALL LIGHT PLACED WITHIN REACH. KEPT CLEAN, DRY AND COMFORTABLE. WILL CONTINUE TO MONITOR.
[2017-09-03 08:00] VITALS: BP 141/76
[2017-09-03] MEDS: CARVEDILOL 6.25 MG TABLET PO SCH (09:00)
[2017-09-03] MEDS: AMLODIPINE BESYLATE 10 MG TABLET PO SCH (09:00)
[2017-09-03] MEDS: SERTRALINE HCL 25 MG TABLET PO SCH (09:57)
[2017-09-03] MEDS: ASPIRIN EC 81 MG TABLET.DR PO SCH (09:57)
[2017-09-03] MEDS: FOLIC ACID 1 MG TABLET PO SCH (09:57)
[2017-09-03] MEDS: CLOPIDOGREL BISULFATE 75 MG TABLET PO SCH (09:57)
[2017-09-03] MEDS: LACTOBACILLUS RHAMNOSUS GG 1 EACH CAP.SPRINK PO SCH ×2 (09:57→15:51)
[2017-09-03] MEDS: SEVELAMER CARBONATE 800 MG TABLET PO SCH ×2 (09:57→13:37)
[2017-09-03] MEDS ORDERED: LISINOPRIL (5MG) 5 MG TABLET PO SCH (10:00)
--- NOTE | 2017-09-03 11:00 | NUR ---
RN NOTES PT MORNING BP MEDS WERE HELD DUE TO HD TODAY. WILL MONITOR PT CLOSELY.
[2017-09-03 12:00] VITALS: BP 132/72
[2017-09-03] MEDS: CEFTRIAXONE 1 G in IV D5W 50 ML IV SCH (15:51)
[2017-09-03] MEDS: AZITHROMYCIN 250 MG TABLET PO SCH (15:51)
[2017-09-03 16:00] VITALS: BP 152/78
--- NOTE | 2017-09-03 17:32 | NUR ---
RN NOTE PT DISCHARGED TO [facility], REPORT GIVEN TO TARUN MENJIVAR, DISCHARGE INSTRUCTIONS GIVEN TO PT, EXIT CARE DONE, TEACHING DONE TO PT, PT VERBALIZED UNDERSTANDING, IV REMOVED, ID BAND REMOVED, BELONGINGS LIST SIGNED AND BELONGINGS PROVIDED TO PT. PT LEFT VIA AMBULANCE IN STABLE CONDITION
[2017-09-03] MEDS ORDERED: ATORVASTATIN 10 MG TABLET PO SCH (22:00)
[2017-09-29] MEDS ORDERED: CHOLECALCIFEROL (VITAMIN D 3) 400 UNIT TABLET PO SCH (09:00)
== END 2017-09-03 17:38 | DRG 280 ==
LOC: ER 11:20 → TELE-TD 13:37 → TELE1 09-03 08:59
PROVIDERS: ADMIT Internal Medicine; ATTEND Internal Medicine
PROC: 5A1D70Z Performance of Urinary Filtration, Intermittent, Less than 6 Hours Per Day (ICD-10-PCS; 2017-08-30)
PROC: 5A1D70Z Performance of Urinary Filtration, Intermittent, Less than 6 Hours Per Day (ICD-10-PCS; 2017-08-31)
PROC: 4A023N7 Measurement of Cardiac Sampling and Pressure, Left Heart, Percutaneous Approach (ICD-10-PCS; principal; 2017-09-01)
PROC: 5A1D70Z Performance of Urinary Filtration, Intermittent, Less than 6 Hours Per Day (ICD-10-PCS; 2017-09-01)
PROC: B201YZZ Plain Radiography of Multiple Coronary Arteries using Other Contrast (ICD-10-PCS; 2017-09-01)
PROC: 5A1D70Z Performance of Urinary Filtration, Intermittent, Less than 6 Hours Per Day (ICD-10-PCS; 2017-09-03)
DX: I21.4 Non-ST elevation (NSTEMI) myocardial infarction (principal); N18.6 End stage renal disease; J96.01 Acute respiratory failure with hypoxia; J15.9 Unspecified bacterial pneumonia; I50.21 Acute systolic (congestive) heart failure; I13.2 Hypertensive heart and chronic kidney disease with heart failure and with stage 5 chronic kidney disease, or end stage renal disease; E11.22 Type 2 diabetes mellitus with diabetic chronic kidney disease; Z99.2 Dependence on renal dialysis; E11.51 Type 2 diabetes mellitus with diabetic peripheral angiopathy without gangrene; D63.1 Anemia in chronic kidney disease; I25.10 Atherosclerotic heart disease of native coronary artery without angina pectoris; Z79.82 Long term (current) use of aspirin; Z89.512 Acquired absence of left leg below knee; Z89.412 Acquired absence of left great toe; Z83.3 Family history of diabetes mellitus; F17.200 Nicotine dependence, unspecified, uncomplicated; M85.9 Disorder of bone density and structure, unspecified
CPT/HCPCS: 36415; 36600; 71045-TC; 80048-TC; 80076-TC; 82306; 82378; 82728-TC; 82746; 82803-TC; 82962-TC; 83540-TC; 83605-TC; 83615-TC; 83735-TC; 83880; 84100-TC; 84155; 84165; 84443-TC; 84484-TC; 84550-TC; 85025-TC; 85045-TC; 85610-TC; 85652-TC; 85730-TC; 87040-TC; 87081-TC; 90935-TC; 93307-TC; 94799-TC; A4216; A4606; J0456; J0696; J1644; J2185; J3370; J7030; J7050; J7060; Z7610

== ENCOUNTER 2019-03-14 11:32 | Emergency (ER) | payer MEDICARE, OTHER ==
[~2019-03-14] VITALS: Ht 182.9 cm; Wt 90.3 kg
[~2019-03-14 11:32] MED LIST changes: -AMLO10TA2 PO; +AMLO10TA7 PO; -CHOL200026 PO; +CHOL500052 PO
[2019-03-14] MEDS ORDERED: TRAM50TA2 PO (11:43)
[2019-03-14] MEDS ORDERED: APIX5TAB PO (11:43)
[2019-03-14] MEDS ORDERED: LISI-607 PO (11:43)
[2019-03-14] MEDS ORDERED: SENN8.8S12 PO (11:43)
[2019-03-14] MEDS ORDERED: CARV6.252 PO (11:43)
--- NOTE | 2019-03-14 11:52 | NUR ---
ZAFAR HUDSON [facility] X LAST NIGHT DIALYSIS (MWF), PT AWAKE, ALERT, -SOB, NAD NOTED, VSS, PENDING MD NORRIS
--- NOTE | 2019-03-14 12:20 | NUR ---
PT TO RADIOLOGY FOR ABDOMINAL CT SCAN VIA [facility].
[2019-03-14] MEDS ORDERED: IBUPROFEN 600 MG TABLET PO ONE (12:30)
[2019-03-14] MEDS: IBUPROFEN 600 MG TABLET PO ONE (12:32)
--- NOTE | 2019-03-14 13:47 | NUR ---
unable to provide urine sample, pt states he still produes urine but unable to provide sample at this time. dr barrios aware
[2019-03-14 13:58] VITALS: BP 138/62
[2019-03-14 14:08] LABS: APPEARANCE,URINE Clear (CLEAR); BILIRUBIN,URINE Negative (NEGATIVE); BLOOD, URINE Moderate Ery/uL (NEGATIVE); COLOR,URINE Yellow (YELLOW); KETONES,URINE Negative (NEGATIVE); LEUKOCYTE ESTERASE ,URINE Negative (NEGATIVE); NITRITE, URINE Negative (NEGATIVE); PROTEIN,URINE >=300 mg/dl (NEGATIVE); UGLUCOSE 500 MG/DL mg/dL (NEGATIVE); UROBILINOGEN,URINE 0.2 EU/dL (0.2)
[2019-03-14 14:09] LABS: PH,URINE >9.0 (5.0-8.0)
[2019-03-14 14:14] LABS: BACTERIA,URINE None seen /HPF (None Seen); RBC,URINE 21-50 /HPF (0-2); SQUAMOUS EPITHELIAL CELL,UR Rare /HPF (None Seen)
[2019-03-14 14:15] LABS: HYALINE CASTS, URINE Few /LPF (None Seen)
--- NOTE | 2019-03-14 14:41 | NUR ---
CALLED TRANSPORT [phone] ETA 60 MINS IS PER [facility] TRIP NUMBER [id number]
--- NOTE | 2019-03-14 16:03 | NUR ---
Patient discharged to home in stable condition. Written and verbal after care instructions given. Patient verbalizes understanding of instruction.
== END 2019-03-14 16:04 | disposition home or self-care (01) ==
LOC: ER 11:32
DX: M54.5 Low back pain (principal); E11.22 Type 2 diabetes mellitus with diabetic chronic kidney disease; I12.0 Hypertensive chronic kidney disease with stage 5 chronic kidney disease or end stage renal disease; N18.6 End stage renal disease; Z99.2 Dependence on renal dialysis; Z89.512 Acquired absence of left leg below knee; Z79.899 Other long term (current) drug therapy; Z79.82 Long term (current) use of aspirin
CPT/HCPCS: 81000-TC